=== PATIENT | female | born 1960 | race Caucasian/White ===

== ENCOUNTER 2016-08-28 16:44 | Observation (INO) | payer OTHER ==
[~2016-08-28 16:44] MED LIST: ASPIRIN81 M1 PO; ATIVAN0.5 M1 PO; CINNAMON500 M1 PO; CIPRO500 M2 PO; COLACE100 M1 PO; CRANBERRY PO; CYMBALTA30 M1 PO; FLAGYL500 M1 PO; IBUPROFEN600 M1 PO; NORCO 5-325 TA1 EACH PO; OMEPRAZOLE20 M3 PO; VITAMIN C500 M3 PO; VITAMIN D2400 UNI1 PO; ZANTAC25 MG/1 ML PO; [UNRECOGNIZED DRUG - OTHER] PO
[2016-08-29 09:22] LABS: BASO % 0.7 % (0-2); EOS % 1.1 % (0-7); EOSINOPHIL ABSOLUTE COUNT 0.1 tho/cmm (0.0-0.7); HCT-HEMATOCRIT 43.3 % (34.0-49.0); HGB-HEMOGLOBIN 14.7 gm/dl (12.0-15.5); LYMPH % 33.5 % (20-45); LYMPH ABSOLUTE COUNT 1.5 tho/cmm (0.8-4.5); MCH (MEAN CORPUSCULAR HGB) 30.1 pg (28.0-32.0); MCHC MEAN CORPUSCULAR HGB CONC 33.9 % (32.0-36.0); MCV (MEAN CELL VOLUME) 88.7 fl (82.0-96.0); MEAN PLATELET VOLUME 10.7 cmc (9.4-12.4); MONO % 10.5 % (0-12); MONOCYTE ABSOLUTE COUNT 0.5 tho/cmm (0.0-1.2); NEUTROPHIL ABSOLUTE COUNT 2.5 tho/cmm (1.6-8.0); NEUTROPHIL-AUTOMATED 2.5 tho/cmm (1.6-8.0); NEUTROPHILS % 54.2 % (40-80); PLATELET COUNT 189 tho/cmm (150-450); RED BLOOD COUNT 4.88 mil/cmm (4.00-5.20); RED CELL DISTRIBUTION WIDTH 12.3 % (12.4-16.4); WHITE BLOOD COUNT 4.6 tho/cmm (4.0-10.0)
[2016-08-29 09:32] LABS: PROTHROMBIN TIME 11.1 SECONDS (9.0-13.6)
[2016-10-04] MEDS ORDERED: ASPIRIN81 M1 PO (14:22)
[2016-10-04] MEDS ORDERED: OMEPRAZOLE40 M2 PO (14:23)
== END 2016-08-29 16:10 ==
LOC: CAR1 16:44
PROVIDERS: Nurse Practitioner; ADMIT Family Medicine
PROC: 0D758ZZ Dilation of Esophagus, Via Natural or Artificial Opening Endoscopic (ICD-10-PCS; principal; 2016-08-28)
PROC: 0DB58ZX Excision of Esophagus, Via Natural or Artificial Opening Endoscopic, Diagnostic (ICD-10-PCS; 2016-08-28)
DX: K22.2 Esophageal obstruction (principal); K31.89 Other diseases of stomach and duodenum; F41.9 Anxiety disorder, unspecified; F32.9 Major depressive disorder, single episode, unspecified; K21.9 Gastro-esophageal reflux disease without esophagitis; F17.210 Nicotine dependence, cigarettes, uncomplicated; K22.4 Dyskinesia of esophagus; R63.4 Abnormal weight loss; Z79.899 Other long term (current) drug therapy; Z88.0 Allergy status to penicillin; Z88.5 Allergy status to narcotic agent; Z87.440 Personal history of urinary (tract) infections; Z90.49 Acquired absence of other specified parts of digestive tract; Z90.89 Acquired absence of other organs; Z96.652 Presence of left artificial knee joint; Z98.890 Other specified postprocedural states
CPT/HCPCS: C9113; G0378; J7030

== ENCOUNTER 2016-10-08 11:09 | Day surgery (SDC) | payer OTHER ==
[~2016-10-08 11:09] MED LIST changes: +OMEPRAZOLE40 M2 PO
== END 2016-10-08 13:45 ==
LOC: SHSC 11:09 → ENDOS 12:55
PROC: 0D748ZZ Dilation of Esophagogastric Junction, Via Natural or Artificial Opening Endoscopic (ICD-10-PCS; principal; 2016-10-08)
PROC: 0DB48ZZ Excision of Esophagogastric Junction, Via Natural or Artificial Opening Endoscopic (ICD-10-PCS; 2016-10-08)
DX: K22.2 Esophageal obstruction (principal); K22.70 Barrett's esophagus without dysplasia; M19.90 Unspecified osteoarthritis, unspecified site; F41.9 Anxiety disorder, unspecified; F32.9 Major depressive disorder, single episode, unspecified; K21.9 Gastro-esophageal reflux disease without esophagitis; F17.210 Nicotine dependence, cigarettes, uncomplicated; Z88.0 Allergy status to penicillin; Z88.5 Allergy status to narcotic agent; Z90.49 Acquired absence of other specified parts of digestive tract; Z98.890 Other specified postprocedural states